=== PATIENT | female | born 1975 | race Caucasian/White ===

== ENCOUNTER 2020-11-21 05:43 | Emergency (ER) | payer MEDICAID ==
[~2020-11-21] VITALS: Ht 157.5 cm; Wt 59.0 kg
[2020-11-21 05:52] VITALS: BP 141/85
--- NOTE | 2020-11-21 06:27 | NUR ---
TASK RN: PER MD PT TO BE DISCHARGED WITH CAB V[employer]CHER. THIS RN WENT TO DISCHARGE PT. PT IS DROWSY BUT RESPONDS AND ANSWERS QUESTIONS APPROPRIATELY. PT SAYS SHE HAS A SOBER FRIEND COMING TO PICK HER UP. PT VERBALIZED UNDERSTANDING TO DISCHARGE INSTRUCTIONS. PT ABLE TO AMBULATE WITH A STEADY GAIT. PT WILL REMAIN IN ROOM TILL FRIEND ARRIVES.
== END 2020-11-21 06:36 | disposition home or self-care (01) ==
LOC: ED 06:00
DX: S01.01XD Laceration without foreign body of scalp, subsequent encounter (principal); X58.XXXD Exposure to other specified factors, subsequent encounter
CPT/HCPCS: 99283

== ENCOUNTER 2020-12-21 01:01 | Emergency (ER) | payer MEDICAID ==
[~2020-12-21] VITALS: Ht 160 cm; Wt 58.0 kg
--- NOTE | 2020-12-21 01:55 | NUR ---
PT. STATES "I JUST NEED TO BE ABLE TO SLEEP SO I CAN RE-CHARGE BECAUSE I AM DOING MY BEST TO TAKE CARE OF MYSELF AND I JUST WANT TO QUIT THINKING ABOUT WHAT HAPPENED TO ME." PT. REPORTS A "TRAUMATIC EVENT" "I DON'T WANT TO TALK ABOUT IT, I JUST WANT TO BE ABLE TO SLEEP AND NOT THINK ABOUT IT." "I AM JUST SAD". PT. DENIES SI/HI. DR. MANZO IN FOR EVAL AND TO REMOVE 2 JARROD FROM PT. HEAD.
[2020-12-21] MEDS ORDERED: LORazepam 1MG TABLET ONE (02:00)
[2020-12-21] MEDS ORDERED: LORazepam 1MG TABLET PO ONE (02:00)
[2020-12-21] MEDS ORDERED: OLANZAPINE 10 MG TABLET ONE (02:00)
[2020-12-21] MEDS ORDERED: OLANZAPINE 10 MG TABLET PO ONE (02:00)
[2020-12-21 02:12] VITALS: BP 165/111
--- NOTE | 2020-12-21 02:12 | NUR ---
PT. STATES SHE IS STAYING IN THE [facility] AND WILL BE WALKING THERE FOR D/C.
== END 2020-12-21 02:28 | disposition home or self-care (01) ==
LOC: ED 01:44
DX: S01.01XD Laceration without foreign body of scalp, subsequent encounter (principal); F41.1 Generalized anxiety disorder; R94.31 Abnormal electrocardiogram [ECG] [EKG]; Z48.02 Encounter for removal of sutures; X58.XXXD Exposure to other specified factors, subsequent encounter
CPT/HCPCS: 93005; 99283